=== PATIENT | female | born 1950 | race Caucasian/White ===

== ENCOUNTER 2022-03-02 10:04 | Emergency (ER) | payer OTHER, MEDICARE ==
[~2022-03-02] VITALS: Ht 162.6 cm; Wt 52.3 kg
[2022-03-02 10:10] VITALS: BP 147/82
[2022-03-02 11:18] VITALS: BP 147/82
== END 2022-03-02 11:18 | disposition home or self-care (01) | DRG 605 ==
LOC: ED 10:04
DX: S80.12XA Contusion of left lower leg, initial encounter (principal); V43.62XA Car passenger injured in collision with other type car in traffic accident, initial encounter